=== PATIENT | male | born 1975 | race Hispanic/Latino ===

== ENCOUNTER → 2017-05-21 | Outpatient (CLI) | payer OTHER ==
[~2017-05-21] MED LIST: IBUP-2353 PO
== END | disposition home or self-care (01) ==
LOC: EDUNIT# 08:30 → RAH 08:34
PROVIDERS: ATTEND Internal Medicine Gastroenterology
DX: R10.11 Right upper quadrant pain (principal)
CPT/HCPCS: 76700

== ENCOUNTER 2017-06-19 08:55 | Day surgery (SDC) | payer OTHER ==
[~2017-06-19] VITALS: Ht 180.3 cm; Wt 113.8 kg
[~2017-06-19 08:55] MED LIST changes: +SODIUM CHLORIDE 0.9% 1000ML 1,000 ML IV ONE
[2017-06-19 09:11] VITALS: BP 150/87
[2017-06-19] MEDS ORDERED: PROPOFOL 10 MG/ML 20ML VIAL IV ONE (09:53)
[2017-06-19 10:14] VITALS: BP 101/50
== END 2017-06-19 10:40 | disposition home or self-care (01) ==
LOC: DAH 08:55 → ENDO 08:55
PROVIDERS: ATTEND Internal Medicine Gastroenterology
DX: D12.8 Benign neoplasm of rectum (principal); E78.5 Hyperlipidemia, unspecified; Z79.899 Other long term (current) drug therapy; Z98.890 Other specified postprocedural states; Z68.38 Body mass index [BMI] 38.0-38.9, adult
CPT/HCPCS: 45380; 88305; 88313; A4606; J2704; J7030